=== PATIENT | female | born 1960 | race Caucasian/White ===

== ENCOUNTER 2017-05-17 23:37 | Emergency (ER) | payer MEDICARE, MEDICAID ==
[~2017-05-17] VITALS: Ht 167.6 cm; Wt 56.0 kg
[~2017-05-17 23:37] MED LIST: AMYL1CAP54 PO; BUPR-94 PO; MECL-111 PO; MELO-100 PO; MONT10TA24 PO; OMEP20TA5 PO; ONDA4TAB6 PO; TRAM50TA2 PO; [UNRECOGNIZED DRUG - MIXTURE] TP
[2017-05-17 23:42] VITALS: BP 147/46
[2017-05-18] MEDS ORDERED: dexamethasone 4mg tablet PO ONE (00:20)
[2017-05-18] MEDS ORDERED: ipratropium/albuterol 3ml nebule NEB ONE (00:20)
== END 2017-05-18 01:26 | disposition home or self-care (01) ==
LOC: ER 23:38
DX: J45.909 Unspecified asthma, uncomplicated (principal); K21.9 Gastro-esophageal reflux disease without esophagitis; G89.29 Other chronic pain; Z56.0 Unemployment, unspecified; Z88.5 Allergy status to narcotic agent; Z88.2 Allergy status to sulfonamides; Z88.1 Allergy status to other antibiotic agents
CPT/HCPCS: 94640; 94760; 99284; J8540